=== PATIENT | female | born 1935 | race Caucasian/White ===

== ENCOUNTER 2017-11-19 09:57 | Outpatient (CLI) | payer MEDICARE, OTHER | END 2017-11-19 10:00 | LOC: LAB 09:57 | PROVIDERS: ATTEND Nurse Practitioner Family | DX: R53.1 Weakness (principal); R10.9 Unspecified abdominal pain; R19.7 Diarrhea, unspecified; Z79.899 Other long term (current) drug therapy | CPT/HCPCS: 87045; 87046; 87427 ==

== ENCOUNTER 2018-03-05 08:22 | Outpatient (CLI) | payer MEDICARE, OTHER | END 2018-03-05 08:23 | LOC: LAB 08:22 | PROVIDERS: ATTEND Orthopaedic Surgery Adult Reconstructive Orthopaedic Surgery | DX: M16.11 Unilateral primary osteoarthritis, right hip (principal); M47.26 Other spondylosis with radiculopathy, lumbar region | CPT/HCPCS: 36415; 85610 ==